=== PATIENT | male | born 1975 | race African-American/Black ===

== ENCOUNTER → 2020-01-22 | Day surgery (SDC) | payer OTHER ==
[2020-01-20 14:29] VITALS: BMI 25.4
[2020-01-22 09:12] VITALS: TEMP 97.8
[2020-01-22 09:48] VITALS: BP 110/71; PULSE 60
--- NOTE | 2020-01-23 17:24 | PATH ---
Surgical Pathology Report Patient Name: WALESKA GOMEZ [facility]. Rec. #: [id number] /Age/Gender: 1975 (Age: 44) / M Account: [id number] Location: [facility]-ENDOSCOPY Taken: 01/22/2020 Received: 01/22/2020 Reported: 01/23/2020 Physicians: Sultana Chavez M.D. Specimen(s) Received HEPATIC FLEXURE Clinical History Family history of colon cancer, hemorrhoids versus fistula Postoperative diagnosis: Colon polyp, hemorrhoids Final Diagnosis COLON, HEPATIC FLEXURE, POLYP, BIOPSY: TUBULAR ADENOMA. Electronically Signed Juana Scherer M.D. Gross Description Received in formalin, labeled "polyp hepatic flexure" are 3 condon, irregular portions of soft tissue ranging from 0.2-0.3 cm. in greatest dimension. The specimens are submitted in toto in one cassette. /01/22/2020 saudi01/22/2020
== END | disposition home or self-care (01) ==
LOC: JASU-ENDO 04:49
PROVIDERS: ATTEND Internal Medicine Gastroenterology
PROC: 0DBL8ZX Excision of Transverse Colon, Via Natural or Artificial Opening Endoscopic, Diagnostic (ICD-10-PCS; principal; 2020-01-22 08:00)
DX: Z12.11 Encounter for screening for malignant neoplasm of colon (principal); Z80.0 Family history of malignant neoplasm of digestive organs; D12.3 Benign neoplasm of transverse colon; K64.8 Other hemorrhoids
CPT/HCPCS: 88305-TC

== ENCOUNTER 2020-08-14 04:23 | Day surgery (SDC) | payer OTHER ==
[2020-08-10 19:09] VITALS: BMI 24.1
[2020-08-14] MEDS ORDERED: SUCCINYLCHOLINE CHLORIDE 200 MG/10 ML SYRINGE ONE (07:42)
[2020-08-14] MEDS ORDERED: MIDAZOLAM HCL 2 MG/2 ML SINGLE DOSE VIAL ONE ×2 (07:42→08:22)
[2020-08-14] MEDS ORDERED: PROPOFOL 20 ML ONE ×3 (07:42)
[2020-08-14] MEDS ORDERED: LIDOCAINE HCL 1% EPINEPHRINE 1:200,000 30 ML VIAL (PF) ONE (07:45)
[2020-08-14] MEDS ORDERED: ROCURONIUM BROMIDE 50 MG/5 ML SYRINGE ONE (08:24)
[2020-08-14] MEDS ORDERED: LIDOCAINE HCL 1% PRESERVATIVE FREE - 30ML VIAL IJ ONE ×2 (08:35)
[2020-08-14] MEDS ORDERED: oxyCODONE HCL 5 MG TABLET PO PRN ×2 (08:50)
[2020-08-14] MEDS ORDERED: ONDANSETRON 4 MG/2 ML VIAL IVPUSH PRN (08:50)
[2020-08-14] MEDS ORDERED: LACTATED RINGERS SOLUTION 1,000 ML IV SCH (09:00)
[2020-08-14 10:49] VITALS: BP 96/63
[2020-08-14 10:53] VITALS: PULSE 58; TEMP 98.3
[2020-08-14] MEDS ORDERED: NEOSTIGMINE METHYLSULFATE 0.5 MG/ML - 10 ML MDV ONE (11:13)
== END 2020-08-14 10:30 | disposition home or self-care (01) ==
LOC: JASU-SURG 04:23
PROVIDERS: ATTEND Surgery
PROC: 0HB1XZZ Excision of Face Skin, External Approach (ICD-10-PCS; principal; 2020-08-14 08:00)
DX: L72.3 Sebaceous cyst (principal)
CPT/HCPCS: 88304-TC